=== PATIENT | male | born 1990 | race Caucasian/White ===

== ENCOUNTER 2019-10-19 11:26 | Emergency (ER) | payer OTHER ==
[2019-10-19] MEDS ORDERED: IBUPROFEN 200 MG TAB PO ONE (12:11)
[2019-10-19] MEDS ORDERED: ACETAMINOPHEN 500 MG TAB ONE (12:11)
[2019-10-19] MEDS ORDERED: IBUPROFEN 400 MG TAB ONE (12:12)
[2019-10-19] MEDS ORDERED: ONDANSETRON 4 MG (ODT) TAB ONE (12:12)
--- NOTE | 2019-10-19 13:09 | EDPHYS ---
Physician Documentation [facility] Name: Brenton Alcala Age: 29 yrs Sex: Male : 1990 Arrival Date: 10/19/2019 Time: 11:31 Bed 23 Private MD: ED Physician Lalit Carrero HPI: 10/18 13:05 This 29 yrs old Male presents to ER via Ambulatory with complaints of Fever, la1 Nausea. 13:05 The patient reports fever, that was measured at 100.2 degrees Fahrenheit. Onset: The la1 symptoms/episode began/occurred today. Modifying factors: there are no obvious modifying factors. Associated signs and symptoms: Pertinent positives: nausea. Severity of symptoms: At their worst the symptoms were mild. The patient has not experienced similar symptoms in the past. Historical: - Allergies: 11:49 No Known Allergies; ss - PMHx: :49 None; ss - PSHx: 11:49 None; ss - Immunization history:: Adult Immunizations up to date. - Social history:: Smoking status: Patient denies any tobacco usage or history of. ROS: 13:05 Eyes: Negative for injury, pain, redness, and discharge, Neck: Negative for injury, la1 pain, and swelling, Cardiovascular: Negative for chest pain, palpitations, and edema, Respiratory: Negative for shortness of breath, cough, wheezing, and pleuritic chest pain. 13:05 Back: Negative for injury and pain, : Negative for injury, bleeding, discharge, and swelling, MS/Extremity: Negative for injury and deformity, Skin: Negative for injury, rash, and discoloration, Neuro: Negative for headache, weakness, numbness, tingling, and seizure. 13:05 Constitutional: Positive for fever, malaise. 13:05 Abdomen/GI: Positive for nausea. Exam: 13:06 Constitutional: This is a well developed, well nourished patient who is awake, alert, la1 and in no acute distress. Head/Face: Normocephalic, atraumatic. ENT: Nares patent. No nasal discharge, no septal abnormalities noted. Tympanic membranes are normal and external auditory canals are clear. Oropharynx with no redness, swelling, or masses, exudates, or evidence of obstruction, uvula midline. Mucous membranes moist. Neck: Trachea midline, Supple, full range of motion without nuchal rigidity, or vertebral point tenderness. No Meningismus. Chest/axilla: Normal chest wall appearance and motion. Nontender with no deformity. No lesions are appreciated. Cardiovascular: Regular rate and rhythm with a normal S1 and S2. No gallops, murmurs, or rubs. Normal PMI, no JVD. No pulse deficits. Respiratory: Lungs have equal breath sounds bilaterally, clear to auscultation a Abdomen/GI: Soft, non-tender, with normal bowel sounds. No distension or tympany. No guarding or rebound. No evidence of tenderness throughout. Skin: Warm, dry with normal turgor. Normal color with no rashes, no lesions, and no evidence of cellulitis. MS/ Extremity: Pulses equal, no cyanosis. Neurovascular intact. Full, normal range of motion. Vital Signs: 11:47 BP 142 / 85; Pulse 84; Resp 15; Temp 98.6(O); Pulse Ox 99% on R/A; Weight 83.91 kg; ss Height 5 ft. 8 in. (172.72 cm); Pain 6/10; 12:15 BP 132 / 86; Pulse 94; Resp 15; Pulse Ox 98% on R/A; vc 13:00 BP 131 / 87; Pulse 97; Resp 16; Pulse Ox 99% on R/A; vc 11:47 Body Mass Index 28.13 (83.91 kg, 172.72 cm) ss MDM: 11:46 Patient medically screened. la1 13:06 Data reviewed: vital signs, nurses notes, lab test result(s). Data interpreted: Pulse la1 oximetry: on room air is 99 %. Interpretation: normal. Counseling: I had a detailed discussion with the patient and/or guardian regarding: the historical points, exam findings, and any diagnostic results supporting the discharge/admit diagnosis, lab results, the need for outpatient follow up, a family practitioner. Special discussion: Based on the patient's Hx, exam, and Dx evaluation, there is no indication for emergent surgery or inpatient Tx. It is understood by the patient/guardian that if the Sx's persist or worsen they need to return immediately for re-evaluation. 13:07 ED course: pt negative for the flu, could be too early to test positive or could be la1 another viral infection, unable to test for COVID 19 because pt does not meet criteria from health department, recommend self quarantine followed by evaluation by PCP. 10/18 12:10 Order name: Flu la1 Administered Medications: 12:10 Drug: Zofran (Ondansetron) 4 mg Route: PO; vc 13:17 Follow up: Response: No adverse reaction vc 12:10 Drug: Motrin 600 mg Route: PO; vc 13:17 Follow up: Response: No adverse reaction vc 12:10 Drug: Tylenol 1000 mg Route: PO; vc 13:17 Follow up: Response: No adverse reaction vc Disposition: 13:32 Co-signature as Attending Physician, Lalit Carrero MD I agree with the assessment and kdr plan of care. Disposition: 10/19/19 13:08 Discharged to Home. Impression: Fever, unspecified, Nausea. - Condition is Stable. - Discharge Instructions: Nausea, Adult, Fever, Adult, [id number]. - Prescriptions for Zofran 4 mg Oral Tablet - take 1 tablet by ORAL route every 12 hours As needed; 6 tablet. - Work release form, Medication Reconciliation Form, Thank You Letter form. - Follow up: Private Physician; When: 7 - 10 days; Reason: Recheck today's complaints, Re-evaluation by your physician. - Problem is new. - Symptoms have improved. Signatures: Dispatcher [employer] EDMN Lalit Carrero MD MD [facility] Mary Gallo RN RN ss Jak Díaz, SOFTBALL CORE MOLDER-C SOFTBALL CORE MOLDER-Cla1 Neetu Don RN RN vc Corrections: (The following items were deleted from the chart) 13:16 13:08 10/19/2019 13:08 Discharged to Home. Impression: Fever, unspecified; Nausea. vc Condition is Stable. Forms are Medication Reconciliation Form, Thank You Letter, Antibiotic Education, Prescription Opioid Use. Follow up: Private Physician; When: 7 - 10 days; Reason: Recheck today's complaints, Re-evaluation by your physician. Problem is new. Symptoms have improved. la1
--- NOTE | 2019-10-19 13:09 | ER ---
Nurse's Notes [facility] Name: Brenton Alcala Age: 29 yrs Sex: Male : 1990 Arrival Date: 10/19/2019 Time: 11:31 Bed 23 Private MD: Diagnosis: Fever, unspecified;Nausea Presentation: 10/18 11:48 Chief complaint: Patient states: HANDY, nausea, fever and body aches that began a few ss hours ago. Coronavirus screen: The patient has NOT traveled to a country currently being monitored by the [facility] within the last 14 days. Proceed with normal triage procedures. The patient has NOT had contact with any known and/or suspected case of coronavirus. Proceed with normal triage procedures. Ebola Screen: Patient denies exposure to infectious person. Patient denies travel to an Ebola-affected area in the 21 days before illness onset. Initial Sepsis Screen: Does the patient meet any 2 criteria? No. Patient's initial sepsis screen is negative. Does the patient have a suspected source of infection? No. Patient's initial sepsis screen is negative. Risk Assessment: Do you want to hurt yourself or someone else? Patient reports no desire to harm self or others. 11:48 Method Of Arrival: Ambulatory ss 11:48 Acuity: ALEC 4 ss 12:18 Onset of symptoms was October 19, 2019 at 08:00. vc Triage Assessment: 12:17 General: Appears in no apparent distress. comfortable, ill, Behavior is calm, vc cooperative, appropriate for age. Pain: Complains of pain in head. GI: Reports nausea. Historical: - Allergies: 11:49 No Known Allergies; ss - PMHx: 11:49 None; ss - PSHx: 11:49 None; ss - Immunization history:: Adult Immunizations up to date. - Social history:: Smoking status: Patient denies any tobacco usage or history of. Screenin:16 Abuse screen: Denies threats or abuse. Nutritional screening: No deficits noted. vc Tuberculosis screening: No symptoms or risk factors identified. Fall Risk None identified. Assessment: 12:17 GI: Abdomen is flat, non-distended. vc 12:18 General: Appears in no apparent distress. comfortable, ill, Behavior is calm, vc cooperative, appropriate for age. Pain: Complains of pain in head. Neuro: Level of Consciousness is awake, alert, obeys commands, Oriented to person, place, time, situation, Appropriate for age. Cardiovascular: Reports nausea. Respiratory: Airway is patent Respiratory effort is even, unlabored, Respiratory pattern is regular, symmetrical. : No signs and/or symptoms were reported regarding the genitourinary system. EENT: No deficits noted. Derm: Skin is intact, is healthy with good turgor, Skin temperature is warm. Musculoskeletal: Circulation, motion, and sensation intact. Range of motion: intact in all extremities. Vital Signs: 11:47 BP 142 / 85; Pulse 84; Resp 15; Temp 98.6(O); Pulse Ox 99% on R/A; Weight 83.91 kg; ss Height 5 ft. 8 in. (172.72 cm); Pain 6/10; 12:15 BP 132 / 86; Pulse 94; Resp 15; Pulse Ox 98% on R/A; vc 13:00 BP 131 / 87; Pulse 97; Resp 16; Pulse Ox 99% on R/A; vc 11:47 Body Mass Index 28.13 (83.91 kg, 172.72 cm) ED Course: 11:31 Patient arrived in ED. mr 11:36 Jak Díaz, [facility] la1 11:36 Lalit Carrero MD is Attending Physician. la1 11:47 Arm band placed on right wrist. ss 11:48 Neeut Don, RN is Primary Nurse. vc 11:49 Triage completed. ss 12:18 Patient has correct armband on for positive identification. Bed in low position. Pulse vc ox on. NIBP on. 13:15 No provider procedures requiring assistance completed. Patient did not have IV access vc during this emergency room visit. Administered Medications: 12:10 Drug: Zofran (Ondansetron) 4 mg Route: PO; vc 13:17 Follow up: Response: No adverse reaction vc 12:10 Drug: Motrin 600 mg Route: PO; vc 13:17 Follow up: Response: No adverse reaction vc 12:10 Drug: Tylenol 1000 mg Route: PO; vc 13:17 Follow up: Response: No adverse reaction vc Outcome: 13:08 Discharge ordered by . la1 13:16 Discharged to home ambulatory. vc 13:16 Condition: good 13:16 Discharge instructions given to patient, Instructed on discharge instructions, follow up and referral plans. medication usage, Demonstrated understanding of instructions, follow-up care, medications, Prescriptions given X 1. 13:16 Patient left the ED. vc Signatures: Opal Kasper Shelby, RN RN Jak Díaz, DRAMATIC CRITIC-C DRAMATIC CRITIC-Cla1 Neetu Don RN RN vc
[2019-10-19 13:28] VITALS: TEMP 98.6
[2019-10-19 13:31] VITALS: BP 131/87; O2SAT 99
== END 2019-10-19 13:16 | disposition home or self-care (01) ==
LOC: ER 11:26
DX: R11.0 Nausea (principal)
CPT/HCPCS: 87804; 99283